=== PATIENT | male | born 1945 | race Caucasian/White ===

== ENCOUNTER 2017-11-19 06:43 | Observation (INO) | payer BC ==
[2017-11-19 07:27] LABS: Hematocrit 45 % (42-52); Hemoglobin 15.2 g/dl (14.0-18.0); Mean Corpuscular HGB Conc 34 g/dl (31-36); Mean Corpuscular Hemoglobin 32 pg (27-31); Mean Corpuscular Volume 95 fL (80-94); Mean Platelet Volume 8 um3 (7.4-10.4); Platelet Count 311 10^3/ul (150-450); Red Blood Count 4.73 10^6/ul (4.0-5.4); Red Cell Distribution Width 14 % (10.5-15); White Blood Count 7.5 10^3/ul (3.5-10.8)
[2017-11-19 07:44] LABS: EGFR Non-African American 62.8 (>60)
[2017-11-19 07:57] LABS: ABS Basophils 0 10^3/ul (0-0.2); ABS Eosinophils 0.2 10^3/ul (0-0.6); ABS Lymphocytes 0.9 10^3/ul (1.0-4.8); ABS Monocytes 0.6 10^3/ul (0-0.8); ABS Neutrophils 5.8 10^3/ul (1.5-7.7); ABS Nucleated RBC 0 10^3/ul; Eosinophil % 2.3 % (0-6); Lymphocyte % 12.5 % (25-47); Nucleated Red Blood Cells % 0.2
--- NOTE | 2017-11-19 08:00 | RAD ---
HISTORY: Stroke like symptoms, dizziness, left arm weakness COMPARISONS: None TECHNIQUE: Multiple contiguous axial CT scans were obtained of the head without intravenous contrast. FINDINGS: HEMORRHAGE/INFARCT: There is no hemorrhage or acute infarct. MASSES/SHIFT: There is no mass or shift. EXTRA-AXIAL SPACES: There are no extra-axial fluid collections. SULCI AND VENTRICLES: The sulci and ventricles are normal in size and position for the patient's stated age. CEREBRUM: There are no focal parenchymal abnormalities. BRAINSTEM: There are no focal parenchymal abnormalities. CEREBELLUM: There are no focal parenchymal abnormalities. VESSELS: There is calcification of the cavernous segments of the internal carotid arteries bilaterally and of the distal vertebral arteries bilaterally. There is calcification suggestive of atherosclerotic plaque at the vertebrobasilar junction.. PARANASAL SINUSES: There is opacification of the left maxillary sinus. There is osteitis of the surrounding bone. ORBITS: The orbits are unremarkable. BONES AND SOFT TISSUE: No bone or soft tissue abnormalities are noted. OTHER: None IMPRESSION: 1. NO ACUTE INTRACRANIAL PATHOLOGY. 2. ATHEROSCLEROSIS. 3. FINDINGS SUGGESTIVE OF CHRONIC LEFT MAXILLARY SINUSITIS
--- NOTE | 2017-11-19 08:30 | RAD ---
INDICATION: Dizziness COMPARISON: CT of the chest April 02, 2007 TECHNIQUE: PA and lateral views of the chest were obtained. FINDINGS: The heart and mediastinum are normal in size and contour. The lungs are grossly clear. There is no evidence of large pleural effusion. Visualized bones are normal for the patient's age. There is no radiographic evidence of free air beneath the diaphragm IMPRESSION: No radiographic evidence of acute cardiopulmonary disease.
[2017-11-19] MEDS: NS 0.9% 1000 ML* 1,000 ML IV SCH ×2 (08:44→12:53)
[2017-11-19 09:48] LABS: Urine Appearance Clear; Urine Blood Negative (Negative); Urine Color Yellow; Urine Ketones Negative (Negative); Urine Protein Negative (Negative); Urine Specific Gravity 1.019 (1.010-1.030); Urine Urobilinogen Negative (Negative)
[2017-11-19] MEDS ORDERED: Tetracaine 0.5% OPTH.SOL 4 ML* 1 DROP BTL ONE (10:17)
[2017-11-19] MEDS ORDERED: Acetaminophen TAB* 325 MG PO PRN (10:51)
[2017-11-19] MEDS ORDERED: Iohexol 350* (CONTRAST) 500 ML MDV IV ONE (11:25)
--- NOTE | 2017-11-19 12:17 | RAD ---
HISTORY: Dizziness COMPARISONS: Head CT dated November 19, 2017 TECHNIQUE: Multiple contiguous axial CT scans were obtained of the head and neck after the administration of nonionic intravenous contrast timed to the systemic arterial phase of contrast enhancement. Coronal and sagittal multiplanar reformations are submitted for review. Multiple 3-D maximum intensity projection reconstructions are also submitted for review. FINDINGS: CTA NECK: AORTIC ARCH: There is calcific atherosclerotic disease of the aortic arch, without ostial or proximal stenosis of the cephalic great vessels. There is a normal three-vessel branching pattern. RIGHT VERTEBRAL ARTERY: There is calcification of the V4 segment of the right vertebral artery. LEFT VERTEBRAL ARTERY: There is calcification of the V4 segment of the left vertebral artery of moderate stenosis at this level. DOMINANCE: The vertebral arteries are codominant. RIGHT COMMON CAROTID ARTERY: The right common carotid artery is patent. The right carotid bifurcation occurs at C3-C4 RIGHT INTERNAL CAROTID ARTERY: There is atheromatous disease of the right carotid bifurcation, without right internal carotid artery stenosis by NASCET criteria. RIGHT EXTERNAL CAROTID ARTERY: The right external carotid artery is unremarkable. LEFT COMMON CAROTID ARTERY: The left common carotid artery is patent. The left carotid bifurcation occurs at C3-C4 LEFT INTERNAL CAROTID ARTERY: There is atheromatous disease of the left carotid bifurcation, without left internal carotid artery stenosis by NASCET criteria. LEFT EXTERNAL CAROTID ARTERY: The left external carotid artery is unremarkable. VENOUS CIRCULATION: The venous system is unremarkable. SALIVARY GLANDS: The parotid glands, submandibular glands, sublingual glands are normal. NASAL CAVITY/NASOPHARYNX: The nasal cavity and nasopharynx are normal. ORAL CAVITY/OROPHARYNX: The oral cavity is obscured by streak artifact from dental amalgam. The visualized oral cavity and oropharynx are unremarkable. LARYNGEAL APPARATUS/HYPOPHARYNX: The laryngeal apparatus and hypopharynx are normal. UPPER AIRWAY/UPPER ESOPHAGUS: The visualized upper airway and esophagus are normal. LUNG APICES: The lung apices are clear. THYROID GLAND: There is a 3.5 cm nodule of the right thyroid. Smaller nodules are noted elsewhere. LYMPH NODES: There is no lymphadenopathy by size criteria. BONES AND SOFT TISSUES: Degenerative changes are noted of the spine. CTA HEAD: INTRACRANIAL CIRCULATION: As noted above, there is calcification of the V4 segments of the vertebral arteries bilaterally with moderate narrowing of the C4 segment of the left vertebral artery. There is minimal calcification of the vertebrobasilar junction. There is mural irregularity with multifocal mild narrowing of the basilar artery. There is calcification of the cavernous segments of internal carotid arteries bilaterally. Elsewhere, there is no aneurysm, vascular malformation, occlusion, or stenosis of the intracranial circulation. The anterior communicating artery complex is clear. Bilateral posterior communicating arteries are identified. VENOUS CIRCULATION: The venous system is unremarkable. PERFUSION: There is no obvious parenchymal perfusion deficit. HEMORRHAGE/INFARCT: There is no hemorrhage or acute infarct. MASSES/SHIFT: There is no mass or shift. EXTRA-AXIAL SPACES: There are no extra-axial fluid collections. SULCI AND VENTRICLES: The sulci and ventricles are normal in size and position for the patient's stated age. CEREBRUM: There are no focal parenchymal abnormalities. BRAINSTEM: There are no focal parenchymal abnormalities. CEREBELLUM: There are no focal parenchymal abnormalities. PARANASAL SINUSES: There is opacification of the left maxillary sinus with osteitis of the surrounding bone. ORBITS: The orbits are unremarkable. BONES AND SOFT TISSUE: Degenerative changes are noted of the spine. OTHER: There is no abnormal enhancement. IMPRESSION: 1. ATHEROSCLEROSIS. 2. NO INTERNAL CAROTID ARTERY STENOSIS BY NASCET CRITERIA. 3. THERE IS MODERATE NARROWING OF THE V4 SEGMENT OF THE LEFT VERTEBRAL ARTERY. ADDITIONALLY, THERE IS MULTIFOCAL MURAL IRREGULARITY OF THE BASILAR ARTERY SUGGESTIVE OF INTRACRANIAL ATHEROSCLEROSIS, WITHOUT OCCLUSION OR HIGH-GRADE STENOSIS. 4. 3.5 CM RIGHT THYROID NODULE. RECOMMEND CORRELATION WITH DEDICATED IMAGING OF THE THYROID IN THE NONACUTE SETTING. CPT II Codes: 3100F
--- NOTE | 2017-11-19 15:57 | ECHO ---
Patient: LYLE FELDMAN [facility] Rec#: [id number] : 1945 Date: 11/19/2017 Age: 72y Height: 180.34 cm / 71.0 in Weight: 95.25 kg / 209.9 lbs Sex: M BSA: 2.15 Room#: 432 Admit Date#: 11/19/2017 Type: Inpatient Referring: Niecy Dumont MD Reading: Vicenta Mackey MD Ink Grinder: Anahi BowersRD,RDMS Transthoracic Echocardiogram Indication: TIA/CVA BP: 149/61 HR: 60 Rhythm: NSR Findings History: HTN Technical Comments: The study quality is good. Left Ventricle: The left ventricular chamber size is normal. Moderate concentric left ventricular hypertrophy is observed. The estimated ejection fraction is 60-65%. Abnormal left ventricular diastolic filling is observed, consistent with impaired relaxation. Left Atrium: The left atrium is mild to moderately dilated. Right Ventricle: The right ventricular chamber size and systolic function are within normal limits. Right Atrium: The right atrial cavity size is normal. The bubble study is negative. A patent foramen ovale is not demonstrated with color Doppler and agitated contrast. Aortic Valve: The aortic valve is trileaflet. The aortic valve leaflets are mildly thickened. There is aortic annular calcification. There is no evidence of aortic regurgitation. There is mild aortic stenosis. The mean gradient of the aortic valve is 12 mmHg. The aortic valve area, by peak velocities, is calculated at 1.8 cm2. Mitral Valve: The mitral valve leaflets appear normal. There is no evidence of mitral regurgitation. There is no evidence of mitral stenosis. Tricuspid Valve: The tricuspid valve leaflets are normal. There is trace tricuspid regurgitation. Unable to estimate the right ventricular systolic pressure. Pulmonic Valve: There is no evidence of pulmonic valve thickening. There is no evidence of pulmonic regurgitation. Pericardium: There is no significant pericardial effusion. Aorta: The aortic root appears normal. There is no dilatation of the aortic arch. Pulmonary Artery: The main pulmonary artery is not well visualized. Venous: The inferior vena cava appears normal in size. There is a greater than 50% respiratory change in the inferior vena cava dimension. Contrast: Intravenous agitated saline contrast was used to assess intracardiac shunting. Summary: There was not any prior study for comparison. Conclusions Moderate concentric left ventricular hypertrophy is observed. The estimated ejection fraction is 60-65%. Abnormal left ventricular diastolic filling is observed, consistent with impaired relaxation. The left atrium is mild to moderately dilated. The bubble study is negative. A patent foramen ovale is not demonstrated with color Doppler and agitated contrast. There is mild aortic stenosis. There is trace tricuspid regurgitation. Measurements Name Value Normal Range RVIDd (AP) 2D 3 cm (0.9 - 2.6) RVDdMajor (2D) 3.5 cm (2.2 - 4.4) RAd ISD 4CH 5.1 cm (3.4 - 4.9) RA (A4C)W 3.5 cm (2.9 - 4.6) IVSd (2D) 1.5 cm (0.6 - 1) LVPWd (2D) 1.5 cm (0.6 - 1) LVIDd (2D) 4.3 cm (3.6 - 5.4) LVIDs (2D) 2 cm - LV FS (2D) 55 % (25 - 45) Aortic Annulus 1.9 cm (1.4 - 2.6) Ao root diameter (2D) 3.2 cm (2.1 - 3.5) Ascending Ao 3.1 cm (2.1 - 3.4) Aortic arch 3 cm (1.8 - 3.4) LA dimension (AP) 2D 4.5 cm (2.3 - 3.8) LAd ISD 4CH 5.6 cm (2.9 - 5.3) LA ISD 4CH W 4.9 cm (2.5 - 4.5) Name Value Normal Range LA ESV SP 4CH (A/L) 88.38 ml - LA ESV SP 2CH (A/L) 93.3 ml - LA ESV BP (A/L) 93.99 ml - LA ESV BP (A/L) index 44 ml/m2 - LA ESV SP 4CH (MOD) 81 ml - LA ESV SP 2CH (MOD) 87.03 ml - Name Value Normal Range MV E-wave Vmax 0.7 m/sec - MV deceleration time 301 msec - MV A-wave Vmax 0.8 m/sec - MV E:A ratio 0.9 ratio - P. vein S-wave Vmax 0.7 m/sec - P. vein D-wave Vmax 0.4 m/sec - P. vein S:D Vmax ratio 1.8 ratio - P. vein A-wave duration 118 msec - LV septal e' Vmax 0.08 m/sec - LV lateral e' Vmax 0.09 m/sec - LV E:e' septal ratio 9 ratio - LV E:e' lateral ratio 8 ratio - Name Value Normal Range AV Vmax 2.3 m/sec - AV VTI 53 cm - AV peak gradient 21 mmHg - AV mean gradient 12 mmHg - LVOT diameter 2 cm - LVOT Vmax 1.3 m/sec - LVOT VTI 32.3 cm - LVOT peak gradient 7 mmHg - LVOT mean gradient 3.7 mmHg - DOI (VTI) 0.6 ratio - SV LVOT 110.14 ml - JAMIE (continuity Vmax) 1.8 cm2 - JAMIE (continuity VTI) 1.9 cm2 - MARCELL Vmax 0.7 m/sec - Name Value Normal Range RAP 8 mmHg - IVC diameter 2 cm - Name Value Normal Range PV Vmax 1 m/sec - PV peak gradient 4 mmHg -
--- NOTE | 2017-11-19 16:26 | HP ---
CC: Dr. Blackmon; Cornelius Barrett MD * HISTORY AND PHYSICAL: DATE OF ADMISSION: 11/19/17 TIME OF ADMISSION: 11:25 a.m. CHIEF COMPLAINT: Dizziness. HISTORY OF PRESENT ILLNESS: This is a 72-year-old man with history of sinus bradycardia and renal calculi who presents with dizziness, slurred speech, and left upper extremity numbness since this morning. He reports that he had some feelings of dizziness last night, but did not think much of it and went to bed, then woke up at 5 o'clock this morning to go to work and when he was walking in to work, he "could hardly walk" and began to slur his speech and noticed left upper extremity pins and needle sensation. He called his at that time who confirmed that his speech was slurred and he drove himself to the emergency department. He believes the numbness and the slurred speech lasted approximately 1 minute and they were resolved by the time he was assessed in the emergency department. He currently feels better except his ongoing dizziness that he describes as feeling like he is going to fall over, especially when he stands or walks. He has no recent illness and has otherwise been well. He estimates his symptoms to have begun between 6:15 and 6:30 this morning. PAST MEDICAL HISTORY: 1. Renal calculi. 2. BPH. 3. Gout. 4. Hypertension. PAST SURGICAL HISTORY: 1. Lithotripsy for renal calculi. 2. Bilateral hip replacements. HOME MEDICATIONS: 1. Norvasc 5 mg b.i.d. 2. Aspirin 81 mg daily. 3. Avodart 0.5 mg daily. 4. Prednisone 20 mg daily for 2 more days. SOCIAL HISTORY: He lives at home with his . 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 REVIEW OF SYSTEMS: As per HPI. Remainder of the 14-point review of systems is negative. PHYSICAL EXAMINATION GENERAL: Alert, well-appearing male, in no distress. VITAL SIGNS: Temperature 98.8, heart rate 48, respiratory rate 16, pulse ox 96 % on room air, blood pressure 149/61. Orthostatic vital signs are negative. HEENT: Pupils are 3 mm bilaterally and reactive to light. He does have nystagmus upon gazing to the left that fatigues after 5 seconds. He has no vertical nystagmus. His face is symmetrical. He has no mucosal lesions or pharyngeal exudates. NECK: No JVP. No cervical adenopathy. LUNGS: Clear bilaterally. CHEST: Regular rate and rhythm. PMI nondisplaced. No murmurs. ABDOMEN: Soft, nontender, nondistended. No guarding or rebound. EXTREMITIES: Trace lower extremity edema. NEUROLOGIC: Strength is 5/5 throughout. Sensation is grossly intact. Finger- to- nose test is normal. When he stands with his ankles touching and his eyes closed, he falls to the left. He stumbles when he attempts to take a few steps. LABORATORY DATA: White blood cell 7.5, hemoglobin 15.2, platelets 311,000. Sodium 139, potassium 3.7, chloride 107, bicarb 27, creatinine 1.14, glucose 111. TSH 1.47. CRP 2.63. Lactate 1.4. Urine drug screen is negative. Serum alcohol is negative. ASSESSMENT AND PLAN: This is a 72-year-old man with history of hypertension and renal calculi who presents with dizziness, faintness, and left upper extremity numbness and slurred speech that began at 6:30 this morning. 1. Stroke/transient ischemic attack symptoms. His symptoms and findings are very concerning for a transient ischemic attack or cerebrovascular accident to me. I have discussed this case with Neurology who recommended a stat MRI and a stat CTA head and neck, which have both been ordered and Neurology has been consulted. I will check lipids and A1c, carotid Dopplers and an echocardiogram and await further neurologic recommendations. He has no metabolic, infectious, or cardiac sources of his symptoms that are evident at this point. He has a longstanding history of sinus bradycardia and this is not likely to be contributing. 2. Hypertension. He is normotensive on Norvasc b.i.d. 3. Benign prostatic hypertrophy. Continue Avodart. His orthostatic vitals are negative. 4. DVT prophylaxis. Lovenox subcutaneously. 5. Disposition. Admission is pending a stat CT angiogram. If a thrombosis is present, he will need to be transferred to a tertiary care center where intervention can be performed. [id number]/CPS #: [id number] [facility]
--- NOTE | 2017-11-19 17:08 | RAD ---
Indication: Dizziness. Sagittal and axial T1, axial diffusion, T2, FLAIR, susceptibility weighted images of the brain were obtained. Ventricular structures are midline. No midline shift is noted. There is central and cortical atrophy noted. Diffusion-weighted images demonstrates focal area of restriction of diffusion in the left kelechi. This may represent a small lacunar infarct in the kelechi. No other areas of restriction of diffusion is noted. There is central and cortical atrophy noted. The FLAIR images demonstrates periventricular signal abnormalities consistent with chronic ischemic White matter change. There appears to be a mass in the left cerebellopontine angle extending into the internal auditory canal. The extracanalicular portion measures 1.8 cm in length x 2.2 cm AP x 1.4 cm in width with a small intracanalicular portion measuring approximately 7 x 8 mm. This is consistent with a vestibulocochlear schwannoma although the possibility of other cerebellopontine angle masses are not excluded. The right cerebellopontine angle is otherwise unremarkable. The orbits are grossly unremarkable. Paranasal sinuses demonstrates opacification in the left maxillary sinus. Mastoid air cells are otherwise unremarkable. 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 Left cerebellopontine angle masses described above which includes an extra an intracanalicular portion consistent with a vestibulocochlear schwannoma. Chronic ischemic White matter change is noted. There is opacification of the left maxillary sinus.
[2017-11-19] MEDS ORDERED: Labetalol IV* 5 MG/ML 20 ML VIAL IV PUSH PRN (17:45)
[2017-11-19] MEDS: amLODIPine TAB* 5 MG PO SCH (20:01)
[2017-11-19] MEDS ORDERED: Atorvastatin* 40 MG TAB PO SCH (21:00)
--- NOTE | 2017-11-19 21:59 | CONS ---
CC: Dr. Raleigh Blackmon * CONSULTATION REPORT: DATE OF CONSULT: 11/19/17 LOCATION: Currently in room 432, bed 1. ATTENDING PHYSICIAN: Dr. Niecy Dumont. PRIMARY CARE PROVIDER: Dr. Raleigh Blackmon. REASON FOR CONSULT: Dizziness, left arm numbness, and dysarthria. HISTORY OF PRESENT ILLNESS: Mr. Villagran is a very nice 72-year-old right- handed gentleman, who has a history of hypertension, sinus bradycardia, and gout. Most recently, he developed a gout flare several weeks ago, has been treated with some prednisone with improvement of his symptoms. He has a long history of bradycardia, generally asymptomatic. He states that he has seen a public utilities sales representative in the past for some chest fluttering, but that the workup was negative. He did report a negative dobutamine stress. He does take an aspirin most days, but he has forgotten for the last few days and he states that he is compliant with his medications. He was in his usual state of health when yesterday, he developed burning pain in his left eye. He states he splashed some warm water and that helped, but it returned about an hour later. He tried to put some ice on the eye, but that made it worse and he has been having this intermittent eye pain throughout yesterday and into today, although it has improved. Shortly after the eye pain started, he started to feel what he describes as dizzy, but denies any room spinning. He states that he felt unsteady on his feet. This has progressively worsened overnight and when he woke up this morning, it was more severe. He also developed left arm numbness and tingling, as well as some slurred speech. At around 6 a.m., his was on the phone with him, when she noticed that his speech was very slurred. He was talking more slowly. He states that he knew what he wanted to say, he just had more difficulty pronouncing the words. He, initially, asked to go to the eye doctor, but she told him to go to the ER which he did immediately. When he came to the ER, his CT of the head showed no acute issues. I did review the films. In the ER, he was noted to be very ataxic. When he tried to walk, he would fall. He was falling to the left more than the right. He denied any vertigo. He denied any hearing changes, any vision loss. He continues to have the intermittent eye pain, but it is improved. He denied any chest pain or jaw claudication. Denied any significant shortness of breath or dyspnea on exertion. He has had no recent episodes of the fluttering in his chest and his symptoms were not associated with that. He was noted to be bradycardic in the ER, but denies any lightheadedness. His main complaint was that he felt unsteady on his feet. By the time he arrived in the ER, his left arm numbness and speech difficulties had largely resolved and his only remaining symptom was the unsteadiness. When I saw him on the floor, his unsteadiness had improved, although he still feels wobbly on his feet. He initially states that he felt weak in his legs, but subsequently identified the symptoms as more unsteadiness. He denies any numbness and tingling in his feet. He denies any back pain. He has had no recent illnesses, fevers, chills, nausea, or vomiting. In the ER, it was noted his blood pressure was elevated at 189/101 to 196/69. Subsequent CT angiogram of the head and neck showed atherosclerosis , no internal carotid artery stenosis by NASCET criteria, moderate narrowing of the V4 segment of the left vertebral artery. Additionally, there is multifocal mural irregularity of the basilar artery suggestive of intracranial atherosclerosis without occlusion or high-grade stenosis, 3.5-cm right thyroid nodule. Recommended correlation with dedicated imaging of the thyroid. I did review the films and agree with that as well. PAST MEDICAL HISTORY: As noted above. PAST SURGICAL HISTORY: Includes bilateral hip replacements, most recently his right hip about 8 weeks ago. MEDICATIONS: His home medications are: 1. Prednisone 20 mg p.o. q. day. 2. Amlodipine 5 mg p.o. b.i.d. 3. Avodart 0.5 mg p.o. q. daily. 4. Aspirin 81 mg q. day. ALLERGIES: No known drug allergies. FAMILY HISTORY: Noncontributory. SOCIAL HISTORY: Denies tobacco or alcohol use. 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 Lives with his . REVIEW OF SYSTEMS: Fourteen-organ systems as noted above, otherwise negative. PHYSICAL EXAM: Vital Signs: Temp of 97.8, blood pressure of /69, pulse rate of 47, respiratory rate of 18, pulse ox is 97%. In general, he is a well- nourished, well-developed gentleman, sitting in his hospital bed. He is pleasant, well dressed, well groomed. HEENT: He is normocephalic, atraumatic. Sclerae are anicteric. Mucous membranes are moist. Oropharynx is clear. Nares are patent. Neck is supple. No thyromegaly. No carotid bruits. No meningismus. Chest: Clear to auscultation bilaterally. Cardiovascular: Regular rate and rhythm. Abdomen: Nontender, nondistended. Extremities: No clubbing, cyanosis, or edema. His skin is warm and dry without petechiae. He has no cords or redness on his temples bilaterally. On neurologic examination, he is awake, alert, and oriented x3. His speech is fluent. There is no dysarthria. Repetition is intact. Recall of recent and remote events is intact. Vocabulary is intact. His mood is euthymic. Affect, mood congruent. Cranial nerves II through XII are intact. Pupils are equal, round, and reactive to light. Extraocular muscles were intact with no nystagmus. Visual jackman are full to confrontation. Facial sensation is intact. Face is symmetric. Palate elevates symmetrically. Tongue is midline. Sternocleidomastoid and trapezius are 5/5. His motor exam 5/5 throughout. Good tone and bulk. No drift. DTRs are 1+ and symmetric in the upper extremities bilaterally, 2+ at the patella bilaterally, 1+ at the ankles bilaterally. Equivocal Babinski's. Sensation is intact to light touch, pinprick, vibration, and proprioception throughout. No sensory loss. [id number] and rapid alternating movements are intact. He has some slight past-pointing on the left. Durs-lb-pnrr all normal bilaterally. His Romberg has minimal sway with eyes open, moderate sway with eyes closed. His gait is wide based and unsteady. DIAGNOSTIC STUDIES/LAB DATA: Lab work includes CBC with diff, MCV of 95, MCH of 32, lymphocyte percent of 12.5, monocyte percent of 7.9. Chemistry: A complete metabolic profile, BUN of 28, glucose of 111. Total bili 1.20. Triglycerides of 243, cholesterol of , LDL of 89, HDL of 30.1. TSH of 1.47. C-reactive protein of 2.63. Troponin I is normal. Urine was negative. U-tox negative. Serum alcohol less than 10. Imaging: As above. ASSESSMENT AND PLAN: Mr. Villagran is a 72-year-old gentleman with a history of hypertension; history of sinus bradycardia; history of gout; recent right hip replacement and did well after surgery, presents to the hospital with a 1-day history of dizziness and some left eye pain and subsequently this morning developed some left arm numbness and tingling as well as some slurred speech which is now resolved. At this point, my concern is that he may have had a stroke. I have a particular concern about a left cerebellar stroke. Given his CTA findings, I worry about the possibility of a brainstem stroke as well versus transient ischemic attack given the fact that his symptoms have largely resolved. His gait seems to be improving from initial presentation as well. I am not clear as to the etiology of the eye pain at this point. I see no evidence for arteritis, although I am going to send labs. Vasculitis would be in the differential but is unlikely. He had no evidence of retinal artery occlusion. No visual field loss. Optic neuritis is certainly within the differential as well, but his eye symptoms have improved. He has had no vision loss and he states that the eye pain seemed to be more superficial in nature. He was tested for corneal abrasion down in the ER, which was negative. The plan is to get an MRI of the brain, get an echocardiogram, check some additional lab work, continue his aspirin, and because of his vertebral artery stenosis, I would treat him with dual anti-platelet therapy, aspirin, and Plavix. Monitor his blood pressure and allow for some permissive hypertension at this point. I would add a statin given his cholesterol with a goal LDL less than 70. He is a nonsmoker and nondiabetic. I will continue to follow him closely and make further recommendations as necessary. Thank you for the opportunity to participate in the care of this very interesting patient. [id number]/[facility] #: [id number] [place]
--- NOTE | 2017-11-20 07:46 | PN ---
Subjective Date of Service: 11/20/17 Interval History: No new issues overnight. He is ambulating with some difficulty. Feels intermittently unsteady but much improved from yesterday. No nausea or vomiting. No headaches, no tinnitus, no vision changes. Numbness and speech difficulties resolved yesterday. No chest pain or shortness of air. No vertigo. Sinus Dex overnight with rate in 40s-50s, asymptomatic. He did complain of some burning in the left outer eye, which he has been experiencing off and on. He is anxious to get home. Objective Active Medications: Acetaminophen (Tylenol Tab*) 650 mg PO Q4H PRN PRN Reason: FEVER/PAIN Amlodipine Besylate (Norvasc Tab*) 5 mg PO BID [facility] Last Admin: 11/19/17 20:01 Dose: 5 mg Aspirin (Aspirin Ec Low Dose*) 81 mg PO DAILY [facility] Atorvastatin Calcium (Lipitor*) 40 mg PO 2100 [facility] Last Admin: 11/19/17 20:01 Dose: 40 mg Clopidogrel Bisulfate (Plavix Tab*) 75 mg PO DAILY [facility] Labetalol HCl (Trandate Iv*) 10 mg IV PUSH Q6H PRN PRN Reason: BLOOD PRESSURE Prednisone (Deltasone Tab*) 20 mg PO DAILY [facility] Stop: 11/21/17 10:00 Vital Signs 11/19/17 11/19/17 11/19/17 11:00 11:17 12:13 Temperature 98.8 F 97.8 F Pulse Rate 54 48 47 Respiratory 18 16 18 Rate Blood Pressure 149/61 162/69 (mmHg) O2 Sat by Pulse 98 96 97 Oximetry 11/19/17 11/19/17 11/19/17 15:23 15:30 19:16 Temperature 97.6 F 97.9 F Pulse Rate 52 55 57 Respiratory 16 18 Rate Blood Pressure 165/68 171/67 156/68 (mmHg) O2 Sat by Pulse 95 95 Oximetry 11/19/17 11/20/17 11/20/17 23:37 04:20 07:16 Temperature 97.3 F 98.6 F 98.1 F Pulse Rate 49 46 Respiratory 16 20 16 Rate Blood Pressure 151/62 162/67 143/68 (mmHg) O2 Sat by Pulse 96 98 97 Oximetry Oxygen Devices in Use Now: None Neurology Exam: General: HEENT: Normocephalic/atraumatic, sclera anicteric, mucous membranes moist. Eyes clear, no conjunctival injection. Pain in the corner of the left eye. No palpable cords in the area, no hoahaoism pain, no erythema Neck: Supple Chest: Clear to auscultation bilaterally Cardiovascular: Regular rate and rhythm without murmurs, rubs, gallops Abdomen: Soft, nontender/nondistended Extremities: No clubbing, cyanosis, or edema Neurological Findings: Awake, Alert, Oriented x3 Speech: fluent without dysarthria, repetition intact Cranial Nerve: PEERL, EOM intact, VFF, 2-3 beats nystagmus with left lateral gaze, face symmetric bilaterally, facial sensation intact, hearing intact to finger rub bilaterally, palate elevates symmetrically, tongue midline, SCM and Trapezius 5/5. Motor: 5/5 throughout, proximal and distal extremities x4 tone/bulk normal Sensation: intact to LT/PP bilaterally upper and lower extremities Deep Tendon Reflex: 1+ symmetric in the upper/lower extremities, Babinski - withdraws bilaterally Finger to nose, rapid alternating movements intact without tremor, no dysdiadochokinesia Gait: Wide based, not ataxic, "I feel off balance." Result Diagrams: 11/19/17 07:10 11/19/17 07:10 Diagnostic Imaging: Echo: No PFO, EF 60-65%, left atrium mildly dilated, diastolic dysfunction CTA: No significant carotid artery stenosis. moderate narrowing of the left V4 segment, multifocal mural irregularity of the basilar, no occlusion or critical stenosis. Thyroid node noted. I reviewed the films and agree with the findings MRI: Small left pontine acute infarct. Mass at left cerebellopontine angle with intra and extracranial component, c/w vestibulocochlear schwannoma. I reviewed the films and agree with the findings CT: No acute infarct. I reviewed the films and agree with the findings. Assessment/Plan 72 year old gentleman with a history of sinus bradycardia, HTN, gout, recently treated with steroids for an acute gout attack, presents with acute onset balance issues, gait difficulty and left arm tingling and slurred speech. MRI shows acute left pontine stroke as well as likely left 1. Pontine stroke: --Workup is complete --Given vertebral-basilar abnormalities, I would treat with dual anti- platelet. --Continue Statin for hypercholesterolemia, goal LDL usp < 70 --BP control: I would strive for middle to high normal range given vertebral -basilar disease. Avoid hypotension --Non-diabetic --Non-smoker --No evidence A.fib --He continues to have some gait instability: Will order PT eval 2. Schwannoma: --Given acute onset of balance issues, I suspect cause is pontine stroke and not schwannoma --Currently asymptomatic, no tinnitus, no obvious hearing loss on left, no vertigo, no headache --Will get MRI with contrast today. Concern for cranial nerve involvement: TGN --Neurosurgery evaluation --We discussed the natural history of these tumors, we will likely follow this over several months with serial MRIs --Low risk of hemorrhage, I believe the benefits of anti-platelet therapy given stroke, greatly outweigh any risk. 3. Sinus Bradycardia: --longstanding issues. Will need to watch for hypotension as noted above. Asymptomatic 4. Left eye pain. The burning is superficial on the surface of the eye. --No rashes or lesions to suggest zoster. --The location could be V1, although very localized. TGN can be seen with vestibular schwannoma --No conjunctival injection. --No acute vision loss. --Unclear etiology. --Unlikely Glaucoma but needs full evaluation. Can happen as outpatient. --Unlikely vasculitic: ANCAs and Compliments sent. 5. Gout: --Currently on steroids. No pain or inflammation. Defer to primary regarding outpatient wean of Prednisone
--- NOTE | 2017-11-20 08:19 | ED ---
Jonathon Conde Angela, scribed for Dev Olmstead MD on 11/19/17 at 0713 . Dizziness - HPI Summary HPI Summary: This pt is a 72 y/o male presenting to [facility] c/o dizziness x2 days, worse today. Pt reports he is so dizzy that he is unable to walk and is unsteady on his feet. Pt notes that he will get so dizzy that he has to sit down and catch his breath as he gets SOB. He additionally states his speech is beginning to slur and is unable to bring words out, and left eye pain. Pt describes left eye pain as burning and notes it is alleviated with hot water but pain returns shortly after. Denies chest pain, palpitations. Pt had a recent hip replacement 8 weeks ago. 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 PMHx includes HTN. Pt is currently on amlodipine. Denies tobacco or alcohol use. Denies taking anticoagulants. - History Of Current Complaint Chief Complaint: EDDizziness Stated Complaint: STROKE LIKE SYMPTOMS Hx Obtained From: Patient Onset/Duration: Still Present Timing: Days Severity Currently: Moderate Character: Room Spinning, Dizzy Aggravating Factor(s): Nothing Alleviating Factor(s): Nothing Associated Signs And Symptoms: Positive: SOB, Slurred Speech, Other: - left eye pain. Negative: Chest Pain, Palpitations - Allergies/Home Medications Allergies/Adverse Reactions: Allergies Allergy/AdvReac Type Severity Reaction Status Date / Time No Known Allergies Allergy Verified 04/14/16 07:08 Home Medications: Home Medications Aspirin EC Low Dose* [Ecotrin EC Low Dose 81 MG*] 81 mg PO DAILY 11/19/17 [ History Confirmed 11/19/17] Dutasteride (NF) [Avodart (NF)] 0.5 mg PO DAILY 11/19/17 [History Confirmed 05/01] amLODIPine TAB* [Norvasc 5 mg TAB*] 5 mg PO BID 11/19/17 [History Confirmed 05/01] predniSONE TAB* [Deltasone TAB*] 20 mg PO DAILY 11/19/17 [History Confirmed 05/01] PMH/Surg Hx/FS Hx/Imm Hx Endocrine/Hematology History: Denies: Hx Diabetes Cardiovascular History: Reports: Hx Hypertension - ON DAILY MEDS, STATES WELL CONTROLLED History: Reports: Hx Kidney Stones - HYx OF 2006 x 2, 2009 - Surgical History Surgery Procedure, Year, and Place: 2013 LEFT HIP REPLACEMENT [facility] 2007 RIGHT & LEFT KIDNEY STONE [facility]. 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 GENERAL: Patient is a well-developed and nourished male who is lying comfortable in the stretcher. Patient is not in any acute respiratory distress. HEAD AND FACE: No signs of trauma. No ecchymosis, hematomas or skull depressions. No sinus tenderness. EYES: PERRLA, EOMI x 2, No injected conjunctiva, no nystagmus. No photophobia. EARS: Hearing grossly intact. Ear canals and tympanic membranes are within normal limits. MOUTH: Oropharynx within normal limits. NECK: Supple, trachea is midline, no adenopathy, no JVD, no carotid bruit, no c- spine tenderness, neck with full ROM. No meningeal signs, no Kernig's or brudzinskis signs. CHEST: Symmetric, no tenderness at palpation LUNGS: Clear to auscultation bilaterally. No wheezing or crackles. CVS: Regular rate and rhythm, S1 and S2 present, no murmurs or gallops appreciated. ABDOMEN: Soft, non-tender. No signs of distention. No rebound no guarding, and no masses palpated. Bowel sounds are normal. EXTREMITIES: FROM in all major joints, no edema, no cyanosis or clubbing. NEURO: Alert and oriented x 3. No acute neurological deficits. Speech is normal and follows commands. SKIN: Dry and warm GCS: 15 Triage Information Reviewed: Yes Vital Signs On Initial Exam: Initial Vitals Temp Pulse Resp BP Pulse Ox 97.2 F 79 16 189/101 99 03/08/18 06:46 11/19/17 06:46 11/19/17 06:46 11/19/17 06:46 11/19/17 06:46 Vital Signs Reviewed: Yes - Sujit Coma Scale Best Eye Response: 4 - Spontaneous Best Motor Response: 6 - Obeys Commands Best Verbal Response: 5 - Oriented Coma Scale Total: 15 Diagnostics - Vital Signs Vital Signs Temp Pulse Resp BP Pulse Ox 11/19/17 06:46 97.2 F 79 16 189/101 99 - Laboratory Result Diagrams: 11/19/17 07:10 11/19/17 07:10 Lab Statement: Any lab studies that have been ordered have been reviewed, and results considered in the medical decision making process. - Radiology Chest XR Xray Interpretation: No Acute Changes - IMPRESSION: No radiographic evidence of acute cardiopulmonary disease. Dr. Olmstead has reviewed this radiology report. Radiology Interpretation Completed By: Radiologist - CT Brain CT CT Interpretation: No Acute Changes - IMPRESSION: 1. No acute intracranial pathology. 2. Atherosclerosis. 3. Findings suggestive of chronic left maxillary sinusitis. Dr. Olmstead has reviewed this radiology report. CT Interpretation Completed By: Radiologist - EKG 06:57 Cardiac Rate: Bradycardia EKG Rhythm: Sinus Bradycardia - at 50 bpm EKG Interpretation: No ST elevation. Diffuse T wave abnormalities. National Institutes Of Health - NIH Scale Level of Consciousness: Alert/Keenly Responsive Ask Patient the Month and His/Her Age: Both Correct Ask Pt to Open/Close Eyes and String Laster/Release Non-Paretic Hand: Both Correctly Best Gaze (Only Horizontal Eye Movement): Normal Visual Field Testing: No Visual Loss Facial Paresis-Pt to Smile & Close Eyes or Grimace Symmetry: Normal/Symmetrical Motor Function - Right Arm: No Drift-Holds 10 Seconds Motor Function - Left Arm: No Drift-Holds 10 Seconds Motor Function - Right Leg: No Drift-Holds 10 Seconds Motor Function - Left Leg: No Drift-Holds 10 Seconds Limb Ataxia-Must be out of Proportion to Weakness Present: Absent Sensory (Use Pinprick to Test Arms/Legs/Trunk/Face): Normal Best Language (Describe Picture, Name Items): No Aphasia Dysarthria (Read Several Words): Normal Extinction and Inattention: No Abnormality Total Score: 0 Dizzy Course/Dx - Course Assessment/Plan: This pt is a 72 y/o male presenting to [facility] c/o dizziness x2 days, worse today. Pt reports he is so dizzy that he is unable to walk and is unsteady on his feet. Pt notes that he will get so dizzy that he has to sit down and catch his breath as he gets SOB. He additionally states his speech is beginning to slur and is unable to bring words out, and left eye pain. Pt describes left eye pain as burning and notes it is alleviated with hot water but pain returns shortly after. Denies chest pain, palpitations. Pt had a recent hip replacement 8 weeks ago. PMHx includes HTN. Pt is currently on amlodipine. Denies tobacco or alcohol use. Denies taking anticoagulants. Test results without any significant abnormalities except for glucose of 111. Urinalysis is negative for UTI. Urine toxicology is negative. Chest XR: No radiographic evidence of acute cardiopulmonary disease. Head CT: 1. No acute intracranial pathology. 2. Atherosclerosis. 3. Findings suggestive of chronic left maxillary sinusitis. Since the pt continues to be symptomatic I discussed the pts case with Dr. Dumont, hospitalist, who accepted the pt for admission. Pt is hemodynamically stable, alert and oriented x3. - Diagnoses Provider Diagnoses: Near syncope, Intractable dizziness - Provider Notifications Discussed Care Of Patient With: Niecy Dumont Time Discussed With Above Provider: 09:21 Instructed by Provider To: Other - I discussed pt care with Dr. Dumont, hospitalist, who has agreed to admit the pt. Discharge - Discharge Plan Condition: Stable Disposition: ADMITTED TO [facility] The documentation as recorded by the Jonathon garcia Angela accurately reflects the service I personally performed and the decisions made by me, Dev Olmstead MD.
[2017-11-20] MEDS: amLODIPine TAB* 5 MG PO SCH (08:33)
[2017-11-20] MEDS ORDERED: Clopidogrel TAB* 75 MG PO SCH (09:00)
[2017-11-20] MEDS ORDERED: predniSONE TAB* 20 MG PO SCH (09:00)
[2017-11-20] MEDS ORDERED: Aspirin EC Low Dose* 81 MG TAB.EC PO SCH (09:00)
[2017-11-20] MEDS ORDERED: Gadoteridol* (CONTRAST) 279.3 MG/ML 10 ML IV ONE (12:36)
--- NOTE | 2017-11-20 12:48 | RAD ---
HISTORY: Follow-up vestibular schwannoma COMPARISONS: MRI dated November 19, 2017 TECHNIQUE: The following sequences were obtained of the head: Axial and coronal thin section T1-weighted images through the level of the internal auditory canals, before and after the administration of a gadolinium-based intravenous contrast agent, sagittal, axial, and coronal postcontrast T1-weighted images FINDINGS: This study is read in conjunction with the MRI of November 19, 2017. As noted on the previous examination, there is a left CP angle mass with minimal extension into the left internal auditory canal. This is heterogeneously enhancing, with mass effect upon the left middle cerebellar peduncle. There are no other areas of abnormal enhancement. IMPRESSION: THE LEFT CP ANGLE MASS IS HETEROGENEOUSLY ENHANCING. THE APPEARANCE IS MOST SUGGESTIVE OF A VESTIBULOCOCHLEAR SCHWANNOMA
[2017-11-20 14:01] VITALS: BP 154/63
--- NOTE | 2017-11-21 01:51 | DS ---
CC: Dr. Blackmon; Cornelius Barrett MD * DISCHARGE SUMMARY: DATE OF ADMISSION: 11/19/17 DATE OF DISCHARGE: 11/20/17 PRIMARY CARE PROVIDER: Dr. Blackmon. 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 SECONDARY DISCHARGE DIAGNOSES: 1. Hypertension. 2. Renal calculi. 3. Benign prostatic hyperplasia. 4. Gout. STUDIES DONE WHILE IN THE HOSPITAL: EKG from 11/19/17 shows atrial bigeminy, rate of 50, no ST segment abnormalities, no enlargement or hypertrophy, T-wave flattening in V5, V6 consistent with previous exam. QTc 396. Brain CT from 05/01 read as no acute intracranial pathology, atherosclerosis, findings suggestive of chronic left maxillary sinusitis. Chest x-ray from 11/19/17 read as no radiographic evidence for acute cardiopulmonary disease. Brain MRI from 11/19/17 read as small acute infarct in left kelechi, left cerebellopontine angle mass as described above which includes an intracranial canalicular portion consistent with vestibulocochlear schwannoma. Chronic ischemic white matter changes noted. There is opacification of the left maxillary sinus. Head CTA read as atherosclerosis, no internal carotid artery stenosis by NASCET criteria. There is moderate narrowing of the T4 segment of the left vertebral artery. Additionally, there is multifocal mural irregularity of the basal artery suggestive of intracranial atherosclerosis without occlusion or high grade stenosis, 3.5 cm right thyroid nodule, recommend correlation with dedicating imaging of the thyroid in the nonacute setting. Transthoracic echocardiogram from 11/19/17 read as moderate concentric left ventricular hypertrophy observed. Estimated ejection fraction of 60% to 65%, abnormal left ventricular diastolic filling is observed consistent with impaired relaxation. Left atrium is mild to moderately dilated. Bubble study negative. No PFO is demonstrated on color Doppler with agitated contrast. There is mild aortic stenosis. There is trace tricuspid regurgitation. Brain MRI with contrast on 11/20/17 read as the left CP angle mass is heterogenously enhancing. The appearance is most suggestive of vestibulocochlear schwannoma. MEDICATIONS AT DISCHARGE: 1. Prednisone 20 mg p.o. daily x1 day. 2. Amlodipine 5 mg p.o. b.i.d. 3. Avodart 0.5 mg p.o. daily. 4. Aspirin 81 mg p.o. daily. 5. Tylenol 650 mg p.o. q.4 hours as needed. 6. Atorvastatin 40 mg p.o. nightly. 7. Clopidogrel 75 mg p.o. daily. 8. Cetirizine 10 mg p.o. daily as needed. NEW MEDICATIONS AT DISCHARGE: 1. Tylenol. 2. Lipitor. 3. Plavix. 4. Cetirizine. MEDICATIONS DISCONTINUED AT DISCHARGE: None. HOSPITAL COURSE: This is a brief summary of patient's presentation. For more details, please see the history and physical from Dr. Niecy Dumont on . In brief, patient is a 72-year-old male with past medical history significant for the above who presents to the emergency department with dizziness, slurred speech and left upper extremity numbness as well, which had all resolved except for unsteadiness upon arrival to the emergency department. The patient states it was worse with walking. He had no other recent illness except for a gout flare, which was treated with prednisone. The patient had imaging as above and was admitted to the hospital for stroke versus TIA. The patient's blood pressure was elevated to 189/101, repeat 196/69. Upon arrival to the emergency department, this slowly decreased naturally to approximately 140/60 intermittently up to the 160s and 170s for a duration of his hospitalization. The patient was found to have pontine stroke and intracranial stenosis as above. The patient was seen in consultation by Dr. Cornelius Barrett of Neurology, please see full consultation report for more details. The patient was found to be very ataxic, concern for brain stem stroke. The patient was found to have pain in his left eye for several days and there was concern for possible trigeminal neuralgia or this may be related to his stroke. The patient had uneventful overnight from 11/19/17 to 11/20/17. The patient had improvement in his ataxia and was able to walk with only slight gait abnormality with Physical Therapy who recommended outpatient physical therapy. The patient had persistent intermittent burning of the left outer eye. The patient had a vestibulocochlear schwannoma, which was assessed with a contrast enhanced MRI of the brain. The patient was started on dual antiplatelet therapy. The patient had LDL of 89 on lipid profile, was started on Lipitor. The patient had no evidence of AFib on telemetry while in the hospital. The patient had no mural thrombus on echocardiogram. The patient's schwannoma was deemed to be likely asymptomatic though with possible trigeminal neuralgia, a Neurosurgery consultation was discussed to be done outpatient with followup with serial MRIs. The patient continued to have left eye pain. The patient was found to have ecchymosis. On exam, the patient states that he do not have any allergies or no exposures except for that he bought several dog collars which he touched with his bare hands despite the packaging recommended he not do so and so he believes he could have touched his eyes. The patient has continued to have no change in his vision. The patient was amenable to discharge with close followup with Dr. Barrett with Neurology. The patient had fluorescein test in the emergency department that showed no corneal abrasion while in the emergency department. PHYSICAL EXAM ON DATE OF DISCHARGE: General: The patient is a 72-year-old male who appears stated age and sitting comfortably in bed, in no acute distress. Vital signs at time of discharge: Temperature 98.1, pulse rate 46, respiratory rate 20, oxygen saturation 94% on room air, blood pressure 154/63. HEENT: Sclerae anicteric. The patient has bilateral ovoid ecchymosis extending from either side of his iris bilaterally, slightly more extensive on the right than the left. The patient had no other conjunctival injection or irritation to his eyes. Nasal mucosa moist, oral mucosa moist. No oropharyngeal erythema, discharge or exudate. Neck: Supple, nontender, no lymphadenopathy. No carotid bruit auscultated. No JVD. Cardiac: Regular. Sinus bradycardia. No clicks, murmurs, gallops or rubs, pulse is 2+ in bilateral dorsalis pedis, posterior tibialis and radial areas. Respiratory: Clear to auscultation bilaterally. No wheezes, rales or rhonchi. Good air exchange bilaterally. Abdomen: Soft, nontender, nondistended. Bowel sounds presents. Normoactive in all 4 quadrants. No hepatosplenomegaly. No abdominal bruits auscultated. Genitourinary: No suprapubic or CVA tenderness. Skin: Clean, dry, intact, no rash. Neuro: The patient had approximately 5 beats of lateral nystagmus with leftward gaze, approximately 10 beats of nystagmus with rightward gaze. The patient performed other cerebellar testing without issue. Cranial nerves II through II otherwise intact. Strength 5/5 bilaterally in the upper and lower extremities distally and proximally. Sensation to light tough intact in the bilateral upper and lower extremities distally and proximally. Reflexes 2+ in the bilateral biceps, patella and Achilles areas. Gait with slight unsteadiness and wide based. Psychiatric: Pleasant and cooperative. LABORATORY DATA: On date of discharge, not available. Other laboratory data of note from admission, MCV 95, hemoglobin 15.2 on admission, creatinine 1.14 on admission. Hemoglobin A1c 5.3, HDL cholesterol 30.1, total cholesterol 168, vitamin B12 260, folate 17.47. Urine benign. Toxicology benign. KEIKO pending. PR3 less than 0.2, myeloperoxidase less than 0.2, complement C3 of 100, complement C4 of 24. DISCHARGE PLAN: The patient will be discharged to home with close followup with Dr. Cornelius Barrett on 11/27/17, which has been discussed with the patient. The patient should not drive until explicitly cleared by his neurologist as a new baseline for his neurological status has not been obtained. The patient is not high risk for seizure but given propensity for vertigo or confusion, the patient should not drive at this time. This has been discussed with the patient and his and they are in agreement. The patient should continue on dual antiplatelet therapy as above as well as statin, the patient should have this followed up with a LDL goal less than 70 with his primary care provider. The patient should also discuss a Holter monitor with his primary care provider to assess termite helper for atrial fibrillation though this is likely related to a thrombotic event. The patient's vasculitis panel is to this point negative as above. The patient should follow up with Dr. Cornelius Barrett for further interpretation of these results as well as serial MRIs to follow the possible progression of his vestibular schwannoma. The patient should follow up with Neurosurgery outpatient as well for his schwannoma. The patient should engage in activity as tolerated except avoiding overly strenuous activities in the direct aftermath of his hospitalization and avoiding activities where if he were to become ataxic or confused or lose consciousness, he will be at risk for grievous injury. The patient should return to the hospital for new weakness, chest pain, shortness of breath, or alarming symptoms. The patient should have a heart healthy diet without caffeine. The patient should follow up with his primary care provider within 1 week for general medical management. TIME SPENT: Approximately 60 minutes were spent in this discharge, 30 of which were spent [id number] with patient obtaining history and physical and discussing the treatment plan. RAJESH EDGAR [id number]/[facility] #: [id number] [place]
== END 2017-11-20 15:00 | disposition home or self-care (01) ==
LOC: ED 06:43 → MEDTELE 10:51
PROVIDERS: ADMIT Internal Medicine; ATTEND Internal Medicine
DX: I63.9 Cerebral infarction, unspecified (principal); R00.1 Bradycardia, unspecified; H57.12 Ocular pain, left eye; I10 Essential (primary) hypertension; N40.1 Benign prostatic hyperplasia with lower urinary tract symptoms; M10.9 Gout, unspecified; I67.2 Cerebral atherosclerosis; I51.7 Cardiomegaly; Z79.899 Other long term (current) drug therapy; Z87.442 Personal history of urinary calculi; R94.31 Abnormal electrocardiogram [ECG] [EKG]; R06.02 Shortness of breath
CPT/HCPCS: 36415; 70450; 70496; 70498; 70551; 70552; 71046; 80053; 80061; 80307; 80320; 81003; 82550; 82607; 82746; 83036; 83516; 83605; 83735; 83880; 84443; 84484; 85025; 86038; 86140; 86160; 93005; 93306; 96360; 96361; 99283; A9270-GY; A9579; G0378; G0480; G8978-GP-CI; G8979-GP-CH; J7512; Q9967

== ENCOUNTER 2019-09-01 12:20 | Emergency (ER) | payer BC ==
[2019-09-01 12:31] VITALS: BP 178/82
[2019-09-01] MEDS ORDERED: Amoxicillin/Clavulanate TAB* 875 MG PO ONE (13:01)
--- NOTE | 2019-09-01 13:06 | UC ---
Hand/Wrist HPI - HPI Summary HPI Summary: 74-year-old male comes in with a chief complaint of left middle finger pain and swelling. It has been going on for about 3 days. On the dorsum of the distal finger at the base of the fingernail there is an area of increased swelling and an area that's open with some drainage. Patient's not sure if he has a foreign body and there are not. He reports that he's a [place] and so he does a lot of different things with his hands every day including handling pheasants which sometimes can scratch or pick at his hands. He did puncture the area yesterday and only got blood out. The pain swelling and redness is in the left middle finger and extends to the PIP but not to the MCP. No known history of MRSA. He reports his last tetanus was within 5 years. - History Of Current Complaint Chief Complaint: UCSkin Stated Complaint: FINGER PAIN Time Seen by Provider: 09/01/19 12:37 Pain Intensity: 10 - Allergies/Home Medications Allergies/Adverse Reactions: Allergies Allergy/AdvReac Type Severity Reaction Status Date / Time No Known Allergies Allergy Verified 09/01/19 12:31 PMH/Surg Hx/FS Hx/Imm Hx Previously Healthy: Yes Endocrine History: Dyslipidemia Cardiovascular History: Hypertension - Surgical History Surgical History: Yes Surgery Procedure, Year, and Place: 2013 LEFT HIP REPLACEMENT [facility]. 2006 RIGHT & LEFT KIDNEY STONE [facility]. 2009 LEFT KIDNEY STONE [facility]. 2017 RT HIP REPLACEMENT - Family History Known Family History: Positive: Non-Contributory Family History: FHx of colon cancer - Social History Alcohol Use: None Substance Use Type: None Smoking Status (MU): Never Smoked Tobacco Have You Smoked in the Last Year: No Review of Systems All Other Systems Reviewed And Are Negative: Yes Constitutional: Positive: Negative Skin: Positive: Other - SEE HPI Eyes: Positive: Negative ENT: Positive: Negative Respiratory: Positive: Negative Cardiovascular: Positive: Negative Gastrointestinal: Positive: Negative Motor: Positive: Other - SEE HPI Neurovascular: Positive: Negative Musculoskeletal: Positive: Other: - SEE HPI Neurological: Positive: Negative Psychological: Positive: Negative Is Patient Immunocompromised?: No Physical Exam Triage Information Reviewed: Yes Appearance: Well-Appearing, No Pain Distress, Well-Nourished Vital Signs: Initial Vital Signs Temp 96.8 F 09/01/19 12:25 Pulse 50 09/01/19 12:25 Resp 16 09/01/19 12:25 BP 178/82 09/01/19 12:25 Pulse Ox 95 09/01/19 12:25 Vital Signs Reviewed: Yes Eye Exam: Normal Eyes: Positive: Conjunctiva Clear Neck: Positive: Supple Respiratory: Positive: No respiratory distress Musculoskeletal: Positive: Other: - Left middle finger is swollen and erythematous from the PIP distally to the tip of the finger. The area of the greatest swelling is on the dorsum just proximal to the fingernail. There is a 3 mm open area of skin that straining serosanguineous fluid. No obvious fluctuance for incision and drainage. There is normal capillary refill and normal sensation. There is some decreased range of motion secondary to the swelling. The swelling and erythema does not extend proximally into the third MCP hand. Neurological: Positive: Alert Psychological: Positive: Age Appropriate Behavior Skin: Positive: Other - Left middle finger is swollen and erythematous from the PIP distally to the tip of the finger. The area of the greatest swelling is on the dorsum just proximal to the fingernail. There is a 3 mm open area of skin that straining serosanguineous fluid. No obvious fluctuance for incision and drainage. There is normal capillary refill and normal sensation. There is some decreased range of motion secondary to the swelling. The swelling and erythema does not extend proximally into the third MCP hand. Hand/Wrist Course/Dx - Course Course Of Treatment: Wild Animal Caretaker: Dev Sandoval C ([id number]) Guide Foreign Tour: DENISE ( DENISE) Report Date: 09/01/2019 13:34:00 Report Status: Final ====== Start of Report Content Patient Name: LYLE FELDMAN Medical Record#: [id number] Ordering Physician: Bin Austin MD Acct.#: [id number] : Age: 74 Sex: M Location: [facility] Exam Date: 09/01/19 1257 ADM Status: DEP ER Order Information: FINGER LEFT MIDDLE Accession Number: [id number] CPT: 98859 Indication: Pain and swelling LEFT third finger with concern for potential foreign body near the base of the nail. Comparison: No relevant prior exams available on the [facility] PACS for comparison. Technique: 3 views LEFT third finger. REPORT AND IMPRESSION: #. Fusiform soft tissue swelling. Negative for subcutaneous emphysema or conspicuous foreign body. #. Negative for fracture or articular malalignment. #. Polyarticular osteoarthritis #. Bone density appears decreased throughout. <Electronically signed by Dev Sandoval MD in OV> 09/01/19 1330 Dictated By: Dev Sandoval MD Dictated Date/ Time: 09/01/19 1317 Transcribed Date/Time: 09/01/19 1317 Copy to: CC:Raleigh Blackmon MD; Bin Austin MD Imaging - [facility] Imaging [facility] Urgent [facility] [address] [place] [address] ph ) ph ([phone]) ph ([phone]) End of Report Content ==== I discussed the x-rays with the patient. No foreign body appreciated. Starting the patient on Augmentin. Patient reports he is up-to-date on his tetanus within the last 5 years. I cultured some the drainage from the dorsum of the distal left middle finger. Plan is to follow-up with orthopedic hand specialist. At the patient know that if the infection extended he needed to get seen again right away by going to the emergency department. Patient agreed with this. - Differential Dx/Diagnosis Provider Diagnosis: Cellulitis of left middle finger Discharge ED - Sign-Out/Discharge Documenting (check all that apply): Patient Departure All imaging exams completed and their final reports reviewed: Yes - Discharge Plan Condition: Stable Disposition: HOME Prescriptions: Amoxicillin/Clavulanate TAB* [Augmentin TAB 875*] 875 mg PO BID #19 tab Patient Education Materials: Cellulitis (ED) Referrals: Raleigh Blackmon MD [Primary Care Provider] - Sara Todd MD [Medical Doctor] - Michael Aragon MD [Medical Doctor] - Additional Instructions: FOLLOW UP WITH THE ORTHOPEDIC HAND SPECIALIST. GET REEVALUATED SOONER IF NOT IMPROVED. GO TO THE EMERGENCY DEPARTMENT IF WORSE; SPREAD OF INFECTION INTO THE HAND, YOU FEEL ILL OR ANY QUESTIONS OR CONCERNS. - Billing Disposition and Condition Condition: STABLE Disposition: Home
== END 2019-09-01 13:17 | disposition home or self-care (01) ==
LOC: UCEAST 12:20
DX: L03.012 Cellulitis of left finger (principal); M19.042 Primary osteoarthritis, left hand; M85.842 Other specified disorders of bone density and structure, left hand; M79.89 Other specified soft tissue disorders; I10 Essential (primary) hypertension
CPT/HCPCS: 73140; 87070; 87077; 87186; 87205; 99212; A9270-GY; G0463